=== PATIENT | female | born 1950 | race Caucasian/White ===

== ENCOUNTER → 2024-04-17 14:13 | Outpatient (REF) | payer MEDICARE, OTHER, SELFPAY | LOC: HWRAD 14:13 | PROVIDERS: ATTENDING PHYSICIAN Nurse Practitioner | DX: M81.0 Age-related osteoporosis without current pathological fracture (principal); Z12.31 Encounter for screening mammogram for malignant neoplasm of breast | CPT/HCPCS: 77063; 77067; 77080 ==

== ENCOUNTER → 2024-05-23 09:25 | Outpatient (REF) | payer MEDICARE, OTHER, SELFPAY ==
[2024-05-23 11:59] LABS: AST (SGOT) 28 U/L (14-36); Blood Urea Nitrogen 13 mg/dl (7-17); Carbon Dioxide 27 mmol/L (22-30); Glucose 95 mg/dl (70-99); Total Bilirubin 0.5 mg/dl (0.2-1.3); Total Cholesterol 251 mg/dl (50-199); Total Protein 7.6 g/dl (6.3-8.2); eGFR > 60.00
[2024-05-23 12:23] LABS: ALT (SGPT) 22 U/L (0-35); Alkaline Phosphatase 107 U/L (38-126); Calcium 9.9 mg/dl (8.4-10.2); Chloride 101 mmol/L (98-107); HDL Cholesterol 71 mg/dl; LDL Cholesterol, Calculated 142 mg/dl; Potassium 4.6 mmol/L (3.5-5.1); Sodium 139 mmol/L (135-145); Triglyceride 194 mg/dl (10-149); Very Low Density Lipoprotein 38 mg/dl (0-30)
== END ==
LOC: HWLAB 09:25
PROVIDERS: ATTENDING PHYSICIAN Nurse Practitioner
DX: E78.2 Mixed hyperlipidemia (principal)
CPT/HCPCS: 36415; 80053; 80061

== ENCOUNTER → 2024-09-05 09:14 | Outpatient (REF) | payer MEDICARE, OTHER, SELFPAY ==
[2024-09-05 12:36] LABS: ALT (SGPT) 27 U/L (0-35); AST (SGOT) 31 U/L (14-36); HDL Cholesterol 70 mg/dl; LDL Cholesterol, Calculated 85 mg/dl; Total Cholesterol 174 mg/dl (50-199); Triglyceride 95 mg/dl (10-149); Very Low Density Lipoprotein 19 mg/dl (0-30)
== END ==
LOC: HWLAB 09:14
PROVIDERS: ATTENDING PHYSICIAN Nurse Practitioner; FAMILY PHYSICIAN Internal Medicine
DX: E78.2 Mixed hyperlipidemia (principal)
CPT/HCPCS: 36415; 80061; 84450; 84460

== ENCOUNTER → 2025-06-02 08:51 | Outpatient (REF) | payer MEDICARE, OTHER, SELFPAY ==
[2025-06-02 10:27] LABS: Hematocrit 45.2 % (37.0-47.0); Hemoglobin 14.9 g/dL (12.0-16.0); Mean Corp Hgb Conc. 33.0 g/dL (33.0-37.0); Mean Corpuscular Volume 94.2 fL (81.0-99.0); Nucleated Red Blood Cells % 0 %; Platelet Count 348 10^3/uL (130-400); Red Cell Dist. Width 13.2 % (11.5-14.5)
[2025-06-02 10:54] LABS: ALT (SGPT) 24 U/L (0-35); AST (SGOT) 24 U/L (14-36); Albumin 5.0 g/dl (3.5-5.0); Alkaline Phosphatase 79 U/L (38-126); Blood Urea Nitrogen 10 mg/dl (7-17); Calcium 9.5 mg/dl (8.4-10.2); Carbon Dioxide 26 mmol/L (22-30); Chloride 103 mmol/L (98-107); Glucose 90 mg/dl (70-99); HDL Cholesterol 70 mg/dl; LDL Cholesterol, Calculated 87 mg/dl; Potassium 4.8 mmol/L (3.5-5.1); Sodium 138 mmol/L (135-145); Total Protein 7.4 g/dl (6.3-8.2); Very Low Density Lipoprotein 36 mg/dl (0-30); eGFR > 60.00
== END ==
LOC: HWLAB 08:51
DX: E78.2 Mixed hyperlipidemia (principal); Z00.00 Encounter for general adult medical examination without abnormal findings
CPT/HCPCS: 36415; 80053; 80061; 84443; 85025

== ENCOUNTER → 2025-07-14 11:54 | Outpatient (REF) | payer MEDICARE, OTHER, SELFPAY | LOC: HWWDC 11:54 | DX: Z12.31 Encounter for screening mammogram for malignant neoplasm of breast (principal) | CPT/HCPCS: 77063; 77067 ==